=== PATIENT | male | born 1975 | race Caucasian/White ===

== ENCOUNTER 2020-07-25 04:57 | Emergency (ER) | payer OTHER ==
[~2020-07-25] VITALS: Ht 172.7 cm; Wt 108.9 kg
[2020-07-25] MEDS ORDERED: ADDERALL 10 MG10 MG PO (05:10)
[2020-07-25] MEDS ORDERED: METFORMIN HCL500 M3 PO (05:10)
[2020-07-25 06:53] VITALS: BP 136/94
== END 2020-07-25 06:55 | disposition home or self-care (01) ==
LOC: M.ERS 04:57
DX: S93.491A Sprain of other ligament of right ankle, initial encounter (principal); M25.511 Pain in right shoulder; E78.00 Pure hypercholesterolemia, unspecified; Z88.0 Allergy status to penicillin; W17.89XA Other fall from one level to another, initial encounter; Y93.39 Activity, other involving climbing, rappelling and jumping off; Y92.89 Other specified places as the place of occurrence of the external cause; Y99.8 Other external cause status

== ENCOUNTER 2020-07-27 05:28 | Emergency (ER) | payer OTHER ==
[~2020-07-27] VITALS: Ht 172.7 cm; Wt 108.9 kg
[~2020-07-27 05:28] MED LIST: ADDERALL 10 MG10 MG PO; METFORMIN HCL500 M3 PO
[2020-07-27 06:25] VITALS: BP 134/79
== END 2020-07-27 06:25 | disposition home or self-care (01) ==
LOC: M.ERS 05:28
DX: S93.401D Sprain of unspecified ligament of right ankle, subsequent encounter (principal); S93.401A Sprain of unspecified ligament of right ankle, initial encounter; E78.00 Pure hypercholesterolemia, unspecified; F90.9 Attention-deficit hyperactivity disorder, unspecified type; Z79.899 Other long term (current) drug therapy; Z88.0 Allergy status to penicillin; X58.XXXD Exposure to other specified factors, subsequent encounter